=== PATIENT | male | born 1990 | race Caucasian/White ===

== ENCOUNTER 2021-05-01 01:12 | Emergency (ER) | payer SELFPAY ==
[~2021-05-01] VITALS: Ht 179 cm; Wt 54.0 kg
[2021-05-01] MEDS ORDERED: NS IV 1000 ML 1,000 ML IV STA (01:28)
[2021-05-01] MEDS ORDERED: PANTOPRAZOLE 40 MG (PROTONIX) VIAL IV STA (01:28)
[2021-05-01] MEDS ORDERED: fentaNYL INJ 100 MCG/2 ML AMP IVP STA (01:28)
[2021-05-01] MEDS ORDERED: KETOROLAC 30 MG/ML VIAL IVP STA (01:28)
--- NOTE | 2021-05-01 01:34 | ED General ---
General Stated Complaint: ABD/CHEST PAIN,AMS Source of Information: Patient, Other (female friend) History of Present Illness Date Seen by Provider: May 01, 2021 Time Seen by Provider: 01:13 Initial Comments 30 yo male brought to ED by female friend. He has complaint of 24 hours or more of diffuse chest and abdomen pain. he states it started when he was eating a popsicle and then was having pain in his back. Since then he has had pain into chest and abdomen. It is sharp in nature. He is vague and not wanting to answer questions. He is taking off BP cuff and O2 sat probe and keeps getting up from the bed and pacing in room despite being asked to sit down to allow exam and obtain history. He has poor eye contact and acts upset that he is being asked questions. He denies fever, chills, nausea or vomiting, diarrhea. He does state he thinks he would feel better if he did throw up. He ate a 7 layer dip earlier this evening and it did not make his symptoms worse. Timing/Duration: 12-24 Hours Associated Systoms: Chest Pain; No Cough, No Diaphoresis, No Fever/Chills, No Headaches, No Loss of Appetite, No Nausea/Vomiting, No Seizure, No Shortness of Air, No Syncope, No Weakness Allergies and Home Medications Allergies Coded Allergies: No Known Drug Allergies (Unverified , 05/01/21) Home Medications Dicyclomine HCl 20 Mg Tablet, 20 MG PO QID PRN for abdominal pain/cramping Prescribed by: LENORA WOLFRT on 05/01/21310 Hydrocodone/Acetaminophen 1 Each Tablet, 1 TAB PO Q8H PRN for PAIN-SEVERE (8-10) Prescribed by: LENORA MCLAUGHLIN on 05/01/21310 Ibuprofen 800 Mg Tablet, 800 MG PO Q8H PRN for PAIN Prescribed by: LENORA WOLFRT on 05/01/21310 Patient Home Medication List Home Medication List Reviewed: Yes Review of Systems Review of Systems Constitutional: No chills, No fever EENTM: no symptoms reported Respiratory: no symptoms reported Cardiovascular: see HPI Gastrointestinal: see HPI Genitourinary: No dysuria Musculoskeletal: back pain Skin: No rash Past [id number] Hx Past Medical History Surgeries: No Physical Exam Vital Signs Vital Signs - First Documented 05/01/21 01:20 Temp 36.9 Pulse 21 Resp 20 B/P (MAP) 150/91 (110) Pulse Ox 100 O2 Delivery Room Air Capillary Refill : Height, Weight, BMI Height: '" Weight: lbs. oz. kg; BMI Method: General Appearance: Anxious, Other (uncooperative with exam and obtaining history on patient. female friend with him had to talk him into have any testing done because he was refusing it) Neck: Full Range of Motion, Non Tender, Supple Respiratory: Lungs Clear, Normal Breath Sounds, No Accessory Muscle Use, No Respiratory Distress, Other (tender to palpation of lower chest wall bilateral lower chest anterior) Cardiovascular: Regular Rate, Rhythm, No Edema, No Murmur, Normal Peripheral Pulses Gastrointestinal: Normal Bowel Sounds, No Pulsatile Mass, Soft; No Distended, No Guarding, No Rebound; Tenderness (epigastric tenderness with palpation) Rectal: Deferred Extremity: Normal Capillary Refill, Normal Inspection, No Pedal Edema Neurologic/Psychiatric: Alert, Other (pt uncooperative with exam and not making eye contact) Skin: Normal Color, Warm/Dry Progress/Results/Core Measures Suspected Sepsis SIRS Temperature: Pulse: Respiratory Rate: Laboratory Tests 05/01/21 01:27: White Blood Count 11.1H Blood Pressure / Mean: Laboratory Tests 05/01/21 01:27: Creatinine 0.86, Platelet Count 288, Total Bilirubin 0.3 Results/Orders Lab Results Laboratory Tests Test 05/01/21 01:27 Range/Units White Blood Count 11.1 H 4.3-11.0 10^3/uL Red Blood Count 5.07 4.35-5.85 10^6/uL Hemoglobin 15.5 13.3-17.7 G/DL Hematocrit 46 40-54 % Mean Corpuscular Volume 91 80-99 FL Mean Corpuscular Hemoglobin 31 25-34 PG Mean Corpuscular Hemoglobin Concent 34 32-36 G/DL Red Cell Distribution Width 13.2 10.0-14.5 % Platelet Count 288 130-400 10^3/uL Mean Platelet Volume 10.7 H 7.4-10.4 FL Immature Granulocyte % (Auto) 0 % Neutrophils (%) (Auto) 47 42-75 % Lymphocytes (%) (Auto) 43 12-44 % Monocytes (%) (Auto) 8 0-12 % Eosinophils (%) (Auto) 1 0-10 % Basophils (%) (Auto) 1 0-10 % Neutrophils # (Auto) 5.2 1.8-7.8 X 10^3 Lymphocytes # (Auto) 4.7 H 1.0-4.0 X 10^3 Monocytes # (Auto) 0.9 0.0-1.0 X 10^3 Eosinophils # (Auto) 0.1 0.0-0.3 10^3/uL Basophils # (Auto) 0.1 0.0-0.1 10^3/uL Immature Granulocyte # (Auto) 0.0 0.0-0.1 10^3/uL Neutrophils % (Manual) 40 % Lymphocytes % (Manual) 49 % Monocytes % (Manual) 5 % Eosinophils % (Manual) 2 % Band Neutrophils 2 % Atypical Lymphocytes 2 % Platelet Estimate ADEQUATE Blood Morphology Comment NORMAL Sodium Level 141 135-145 MMOL/L Potassium Level 4.1 3.6-5.0 MMOL/L Chloride Level 103 98-107 MMOL/L Carbon Dioxide Level 30 21-32 MMOL/L Anion Gap 8 5-14 MMOL/L Blood Urea Nitrogen 11 7-18 MG/DL Creatinine 0.86 0.60-1.30 MG/DL Estimat Glomerular Filtration Rate > 60 BUN/Creatinine Ratio 13 Glucose Level 107 H 70-105 MG/DL Calcium Level 9.8 8.5-10.1 MG/DL Corrected Calcium 9.6 8.5-10.1 MG/DL Total Bilirubin 0.3 0.1-1.0 MG/DL Aspartate Amino Transf (AST/SGOT) 79 H 5-34 U/L Alanine Aminotransferase (ALT/SGPT) 38 0-55 U/L Alkaline Phosphatase 78 40-136 U/L Total Protein 6.6 6.4-8.2 GM/DL Albumin 4.3 3.2-4.5 GM/DL Lipase 45 8-78 U/L Serum Alcohol < 10 <10 MG/DL Smear Scan YES My Orders Orders - LENORA MCLAUGHLIN MD Comprehensive Metabolic Panel (05/01/21:) Lipase (05/01/21:) Ua Culture If Indicated (05/01/21:) Ed Iv/Invasive Line Start (05/01/21:) Cbc With Automated Diff (05/01/21:) Drug Screen Stat (Urine) (7/8/21 01:26) Alcohol (05/01/21 01:26) Ct Chest/Abdomen/Pelvis W (05/01/21 01:28) Ns Iv 1000 Ml (Sodium Chloride 0.9%) (05/01/21 01:28) Pantoprazole Injection (Protonix Injecti (05/01/21 01:28) Ketorolac Injection (Toradol Injection) (05/01/21 01:28) Fentanyl Inj (Sublimaze Injection) (05/01/21 01:28) Iohexol Injection (Omnipaque 350 Mg/Ml 1 (05/01/21 02:00) Received Contrast (Hold Metformin- Contr (05/01/21 02:00) Ns (Ivpb) (Sodium Chloride 0.9% Ivpb Bag (05/01/21 02:00) Manual Differential (05/01/21 01:27) Medications Given in ED Current Medications Medications Dose Ordered Sig/Kaye Route Start Time Stop Time Status Last Admin Dose Admin Iohexol 100 ml ONCE ONCE IV 05/01/21 02:00 05/01/21 02:11 DC 05/01/21 02:12 100 ML Sodium Chloride 100 ml ONCE ONCE IV 05/01/21 02:00 05/01/21 02:11 DC 05/01/21 02:12 80 ML Vital Signs/I&O 05/01/21 01:20 Temp 36.9 Pulse 21 Resp 20 B/P (MAP) 150/91 (110) Pulse Ox 100 O2 Delivery Room Air Capillary Refill : Progress Note #1: Progress Note Advised pt that would order labs and CT scan to evaluate what might be causing his symptoms of not feeling well and having pain all over. Initially he refused but the female friend in room with him talked him into having testing done. Progress Note #2: Progress Note Labs are all stable without acute significant abnormality. He does have a white blood cell count upper limit of normal 11.1. His chemistry panel did not show a ny acute significant abnormality. He did not provide urine before being discharged. His CT scan showed a dilated gallbladder but no stones. He was any pain on repeat exam after getting treatment in the ED. His radiologist concern for possible undescended testes in the inguinal canal was denied by the patient and he stated that both of his testes were descended. He refused testicular exam. Counseled to follow-up with the clinic for further concerns if he had problems or pain genital or groin area. In terms of the gallbladder being dilated an outpatient ultrasound was ordered and counseled on follow-up with the clinic. Advised to follow a low-fat bland diet. Prescribed ibuprofen and Bentyl to help with pain. For severe pain a few hydrocodone were prescribed. Given information for the [facility] clinic to establish care and follow-up. Patient is more calm and resting in room after Toradol and IVF Diagnostic Imaging Diagonstic Imaging: CT Plain Films/CT/US/NM/MRI: chest, abdomen, pelvis Comments Impression 1. Negative CT chest. 2. Slightly heterogeneous liver contrast-enhancement. Findings may represent subtle fatty infiltration. Correlate with liver enzymes. 3. Gallbladder is distended but otherwise normal. If there is right upper quadrant abdominal pain and abdominal sonogram is recommended. 4. There is an ovoid low-attenuation mass in the right inguinal canal. This could represent an undescended testes. Correlate clinically and if necessary with scrotal ultrasound. Read by radiologist Dr. Sean cardozo MD [id number] and faxed at [phone] Reviewed: Reviewed Night [facility] Study Departure Impression Primary Impression: Epigastric abdominal pain Additional Impressions: Dilated gallbladder RUQ abdominal pain Disposition: HOME, SELF-CARE Condition: Improved Departure-Patient Inst. Decision time for Depature: 03:06 Referrals: NO,LOCAL PHYSICIAN (PCP) Primary Care Physician [facility] Patient Instructions: Gallbladder Diet, Ulcer and Gastritis Diet, Abdominal Pain, Adult ED Add. Discharge Instructions: stay well hydrated and drink plenty of water and electrolyte drinks. Follow a low fat bland diet If having more severe pain despite medicine, fever over 101 F, or uncontrolled vomiting then return or seek medical care for further evaluation. Call Radiology at [phone] between 7 and 730 am to see about scheduling an ultrasound. Call [facility] clinic at [phone] to establish care with primary provider and follow up on testing and symptoms Scripts Hydrocodone/Acetaminophen (Hydrocodone-Acetamin 5-325 mg) 1 Each Tablet 1 TAB PO Q8H PRN for PAIN-SEVERE (8-10) for 3 Days, #9 TAB 0 Refills Prov: LENORA MCLAUGHLIN MD 05/01/21 Dicyclomine HCl (Dicyclomine HCl) 20 Mg Tablet 20 MG PO QID PRN for abdominal pain/cramping for 7 Days, #28 TAB 0 Refills Prov: LENORA MCLAUGHLIN MD 05/01/21 Ibuprofen (Ibuprofen) 800 Mg Tablet 800 MG PO Q8H PRN for PAIN for 10 Days, #30 TAB 0 Refills Prov: LENORA MCLAUGHLIN MD 05/01/21 LENORA MCLAUGHLIN MD May 01, 2021 01:34
[2021-05-01 01:42] LABS: WHITE BLOOD COUNT 11.1 10^3/uL (4.3-11.0)
[2021-05-01 01:49] LABS: EOSINOPHILS % (AUTO) 1 % (0-10); HEMATOCRIT 46 % (40-54); HEMOGLOBIN 15.5 G/DL (13.3-17.7); LYMPHOCYTES % (AUTO) 43 % (12-44); MEAN CORPUSCULAR HEMOGLOBIN 31 PG (25-34); MEAN CORPUSCULAR HGB CONC 34 G/DL (32-36); MEAN CORPUSCULAR VOLUME 91 FL (80-99); MEAN PLATELET VOLUME 10.7 FL (7.4-10.4); MONOCYTES % (AUTO) 8 % (0-12); NEUTROPHILS % (AUTO) 47 % (42-75); PLATELET COUNT 288 10^3/uL (130-400)
[2021-05-01 01:50] LABS: BASOPHILS # (AUTO) 0.1 10^3/uL (0.0-0.1); BASOPHILS % (AUTO) 1 % (0-10); EOSINOPHILS # (AUTO) 0.1 10^3/uL (0.0-0.3); LYMPHOCYTES # (AUTO) 4.7 X 10^3 (1.0-4.0); MONOCYTES # (AUTO) 0.9 X 10^3 (0.0-1.0); NEUTROPHILS # (AUTO) 5.2 X 10^3 (1.8-7.8)
[2021-05-01 01:56] LABS: SMEAR SCAN COMMENT YES
[2021-05-01 01:57] LABS: ATYPICAL LYMPHOCYTES 2 %; BAND NEUTROPHILS 2 %; EOSINOPHILS % (MANUAL) 2 %; LYMPHOCYTES % (MANUAL) 49 %; MONOCYTES % (MANUAL) 5 %; NEUTROPHILS % (MANUAL) 40 %
[2021-05-01 01:58] LABS: PLATELET ESTIMATE ADEQUATE; RBC MORPH NORMAL
[2021-05-01 02:00] LABS: BUN/CREATININE RATIO 13; CALCIUM 9.8 MG/DL (8.5-10.1); CARBON DIOXIDE 30 MMOL/L (21-32); CHLORIDE 103 MMOL/L (98-107); CREATININE SERUM 0.86 MG/DL (0.60-1.30); GFR ESTIMATED > 60; GLUCOSE 107 MG/DL (70-105); POTASSIUM 4.1 MMOL/L (3.6-5.0); SODIUM 141 MMOL/L (135-145)
[2021-05-01] MEDS ORDERED: NS 100 ML (IVPB) BAG IV ONE (02:00)
[2021-05-01] MEDS ORDERED: IOHEXOL 350 MG/ML 100 ML (OMNIPAQUE 350) VIAL IV ONE (02:00)
[2021-05-01] MEDS ORDERED: HOLD METFORMIN - RECEIVED CONTRAST 20 ML VIAL IV SCH (02:00)
[2021-05-01 02:01] LABS: ALANINE AMINOTRANSFERASE 38 U/L (0-55); ALBUMIN 4.3 GM/DL (3.2-4.5); ALKALINE PHOSPHATASE 78 U/L (40-136); BILIRUBIN,TOTAL 0.3 MG/DL (0.1-1.0); LIPASE 45 U/L (8-78); TOTAL PROTEIN 6.6 GM/DL (6.4-8.2)
[2021-05-01] MEDS ORDERED: IBUP-1780 PO (03:11)
[2021-05-01] MEDS ORDERED: DICY20TA10 PO (03:11)
[2021-05-01] MEDS ORDERED: ACHD5005 PO (03:11)
[2021-05-01 03:20] VITALS: BP 150/91
--- NOTE | 2021-05-01 08:32 | Diagnostic Imaging Report ---
PROCEDURE: CT chest, abdomen, and pelvis with contrast. TECHNIQUE: Multiple contiguous axial images were obtained through the chest, abdomen, and pelvis after the administration of intravenous contrast. Auto Exposure Controls were utilized during the CT exam to meet ALARA standards for radiation dose reduction. INDICATION: Mid epigastric pain. No prior studies are available for comparison. CT CHEST: No axillary lymphadenopathy is detected. No mediastinal or hilar lymphadenopathy is detected. No pericardial or pleural fluid identified. The thoracic aorta is normal in caliber. Central pulmonary arteries are patent. The lungs are clear apart from a calcified granuloma in left lower lobe. No infiltrates, noncalcified nodules or masses are seen. IMPRESSION: Unremarkable CT of the chest. CT abdomen and pelvis: There is some heterogeneity to the liver but no discrete liver mass is identified. There is some mild distention of the gallbladder. No biliary duct dilatation is seen. The pancreas and spleen are unremarkable. No adrenal mass is identified. Kidneys are unremarkable. Aorta is nonaneurysmal. Small and large bowel loops are normal in caliber. There is no ascites. Bladder and prostate are unremarkable. There is an ovoid structure in the right inguinal canal which could represent an undescended testicle. IMPRESSION: 1. There is some mild dilatation of the gallbladder. If there is concern for gallbladder pathology, gallbladder ultrasound would be useful for further evaluation. 2. Otherwise unremarkable CT of abdomen and pelvis without acute feature. 3. Questionable undescended testicle right inguinal canal. Clinical correlation is recommended. Dictated by: Dictated on workstation # [id number]
== END 2021-05-01 03:20 | disposition home or self-care (01) ==
LOC: ER FS 01:14
DX: K82.8 Other specified diseases of gallbladder (principal)
CPT/HCPCS: 36415; 71260; 74177; 80053; 83690; 85007; 85027; 99284; G0480; 80320

== ENCOUNTER 2022-04-18 23:03 | Emergency (ER) | payer SELFPAY ==
[~2022-04-18] VITALS: Ht 170 cm; Wt 65.0 kg
[~2022-04-18 23:03] MED LIST: ACHD5005 PO; DICY20TA PO; IBUP-1780 PO
[2022-04-18 23:22] VITALS: BP 132/80
[2022-04-18] MEDS ORDERED: TETRACAINE 0.5% OPHTH SOLN 4 ML BTL (SINGLE DOSE ONLY) OP ONE (23:30)
[2022-04-18] MEDS ORDERED: FLUORESCEIN (FLUOR-I-STRIPS) 1 MG STRP OP ONE (23:30)
[2022-04-19] MEDS ORDERED: NEO/POLYM/GRAM (NEOSPORIN) OPHTH SOLN 10ML ONE (00:14)
--- NOTE | 2022-04-19 00:40 | ED EENT ---
History of Present Illness General Chief Complaint: Eye Problems Stated Complaint: FOREIGN BODY RIGHT EYE Nursing Triage Note: pt presents with c/o eight eye pain. reports getting metal in his right eye yesterday. reports attempt to flush with water. reports increased pain and irritation in the right eye along with clear tearing. Source: patient Exam Limitations: no limitations History of Present Illness Date Seen by Provider: Apr 18, 2022 Time Seen by Provider: 23:42 Initial Comments 31-year-old male patient states he has pain and foreign body sensation in his right thigh since yesterday afternoon. Patient states he was sharpening blade of Moir and reports of metal hit him on his right thigh and he tried to flush this today without success and having foreign body sensation and tearing of right eye and unable to keep his eye open. Patient denies headache, nausea and vomiting, other injuries. Allergies and Home Medications Allergies Coded Allergies: No Known Drug Allergies (Unverified , 05/01/21) Patient Home Medication List Home Medication List Reviewed: Yes Dicyclomine HCl (Dicyclomine HCl) 20 Mg Tablet, 20 MG PO QID PRN for abdominal pain/cramping Prescribed by: LENORA MCLAUGHLIN on 05/01/21310 Hydrocodone/Acetaminophen (Hydrocodone-Acetamin 5-325 mg) 1 Each Tablet, 1 TAB PO Q8H PRN for PAIN-SEVERE (8-10) Prescribed by: LENORA MCLAUGHLIN on 05/01/21310 Ibuprofen (Ibuprofen) 800 Mg Tablet, 800 MG PO Q8H PRN for PAIN Prescribed by: LENORA MCLAUGHLIN on 05/01/21310 Review of Systems Review of Systems Constitutional: no symptoms reported Eyes: See HPI Ears: No Symptoms Reported Nose: no symptoms reported Mouth: no symptoms reported Throat: no symptoms reported Respiratory: no symptoms reported Cardiovascular: no symptoms reported Gastrointestinal: no symptoms reported Musculoskeletal: no symptoms reported Skin: no symptoms reported All Other Systems Reviewed Negative Unless Noted: Yes Past Eizgudr-Clxkta-Mmvsxi Hx Patient Social History Tobacco Use?: Yes Tobacco type used: Cigarettes Smoking Status: Current Everyday Smoker Substance use?: Yes Substance type: Marijuana Substance frequency: Once in a while Alcohol Use?: No Pt feels they are or have been: No Immunizations Up To Date Influenza Vaccine Up-to-Date: No; Not Current Past Medical History Surgeries: No Physical Exam Vital Signs Vital Signs - First Documented 04/18/22 23:22 Pulse 85 Resp 18 B/P (MAP) 132/80 (97) Pulse Ox 100 O2 Delivery Room Air Height, Weight, BMI Height: '" Weight: lbs. oz. kg; 22.00 BMI Method: General Appearance: mild distress Eyes: right eye corneal abrasion, right eye foreign body (Micha metal in center of cornea); bilateral eye PERRL, bilateral eye EOMI Ears: bilateral ear auricle normal Nose: normal inspection Mouth/Throat: normal mouth inspection Neck: non-tender, full range of motion Cardiovascular: regular rate, rhythm Respiratory: chest non-tender, lungs clear, normal breath sounds Skin: normal color Progress/Results/Core Measures Results/Orders My Orders Orders - CYNDY ADAM MD Tetracaine 0.5% Ophth Ivory Sdv (Tetracai (04/18/22 23:30) Fluorescein Strips ([id number]) (04/18/22 23:30) Benny/Poly/Gram Ophthalmic Soln (Neosporin (04/19/22 04:00) Benny/Poly/Gram Ophthalmic Soln (Neosporin (04/19/22 00:14) Vital Signs/I&O 04/18/22 23:22 Pulse 85 Resp 18 B/P (MAP) 132/80 (97) Pulse Ox 100 O2 Delivery Room Air Blood Pressure Mean: 97 Progress Progress Note : Progress Note Evaluation of patient in ER showed 31-year-old male patient with metal foreign body of right eye for more than 3 hours and severe photophobia and foreign body sensation that partially improved with applying tetracaine. Foreign body was not removed because of rust and patient sensitivity to touching his eye even had tetracaine drop. Patient treated with ophthalmic antibiotic and medication was dispensed. Patient advised that we need to transfer him to some other place with ophthalmology on-call. While checking for available ophthalmology he eloped. Departure Impression Primary Impression: Corneal abrasion Qualified Codes: S05.01XA - Injury of conjunctiva and corneal abrasion without foreign body, right eye, initial encounter Additional Impression: Foreign body of cornea Qualified Codes: T15.01XA - Foreign body in cornea, right eye, initial encounter Disposition: 07 AGAINST MEDICAL ADVICE (eloped at 0050) Condition: Against Medical Advice Departure-Patient Inst. Referrals: NO,LOCAL PHYSICIAN (PCP/Family) Primary Care Physician CYNDY ADAM MD Apr 19, 2022 00:40
[2022-04-19] MEDS ORDERED: NEO/POLYM/GRAM (NEOSPORIN) OPHTH SOLN 10ML OU SCH (04:00)
== END 2022-04-19 00:47 | disposition left against medical advice (07) ==
LOC: EDUNIT# 23:03 → ER FS 23:07
DX: T15.01XA Foreign body in cornea, right eye, initial encounter (principal); F17.210 Nicotine dependence, cigarettes, uncomplicated; W45.8XXA Other foreign body or object entering through skin, initial encounter
CPT/HCPCS: 99282